=== PATIENT | female | born 1950 | race Caucasian/White ===

== ENCOUNTER 2019-02-18 11:12 | Emergency (ER) | payer BC, MEDICARE ==
[2019-02-18 11:45] VITALS: BP 116/80
--- NOTE | 2019-02-18 12:02 | UC ---
General HPI - HPI Summary HPI Summary: Got into town last night and found a small tick on her left knee this morning. No complaints. She was outside in the field during the evening - History of Current Complaint Chief Complaint: UCBiteInjury Stated Complaint: TICK Time Seen by Provider: 02/18/19 11:50 Hx Obtained From: Patient Onset/Duration: Gradual Onset, Lasting Hours Timing: Constant Onset Severity: Mild Current Severity: Mild Pain Intensity: 0 - Allergy/Home Medications Allergies/Adverse Reactions: Allergies Allergy/AdvReac Type Severity Reaction Status Date / Time cephalexin Allergy Itching, Verified 02/18/19 11:38 Redness ciprofloxacin [From Cipro] Allergy Itching, Verified 02/18/19 11:38 Redness erythromycin base Allergy Itching, Verified 02/18/19 11:38 Redness Penicillins Allergy Anaphylatic Verified 02/18/19 11:38 Shock Home Medications: Home Medications Albuterol HFA INHALER* [Ventolin HFA Inhaler*] 1 - 2 puff INH Q4H PRN 02/18/19 [ History Confirmed 02/18/19] Aspirin EC TAB* [Ecotrin EC Low Dose 81 MG*] 81 mg PO DAILY 02/18/19 [History Confirmed 02/18/19] Atorvastatin* [Lipitor*] 20 mg PO DAILY 02/18/19 [History Confirmed 02/18/19] Cholecalciferol TAB* [Vitamin D TAB*] 4,000 units PO DAILY 02/18/19 [History Confirmed 02/18/19] Hydrocodone/Acetaminophen [Hydrocodone/Acetaminophen 5-325 mg] 1 tab PO TID 09/07 [History Confirmed 02/18/19] Ibuprofen TAB* [Motrin TAB* 800 MG] 800 mg PO Q8H PRN 02/18/19 [History Confirmed 02/18/19] Umeclidin/Vilant 62.5 MDI(NF) [ANORO 62.5/25 Ellipta DEVICE (NF)] 1 inh INH QAM 02/18/19 [History Confirmed 02/18/19] metFORMIN* [Glucophage 500 MG TAB *] 500 mg PO BID 02/18/19 [History Confirmed 02/18/19] PMH/Surg Hx/FS Hx/Imm Hx Endocrine History: Diabetes - Surgical History Surgical History: Yes Surgery Procedure, Year, and Place: Cervical Fusion, 2017, [place]; Partial Left Upper Lobectomy, ~2014, [place]; Right Breast Lumpectomy, 2009, [place]; Cervical Surgeries ~2003 ~1997 - Social History Alcohol Use: Rare Substance Use Type: None Smoking Status (MU): Light Every Day Tobacco Smoker Type: Cigarettes Amount Used/How Often: ~1/10 PPD Length of Time of Smoking/Using Tobacco: Since Age 19 Review of Systems All Other Systems Reviewed And Are Negative: Yes Physical Exam - Summary Physical Exam Summary: She is nontoxic in appearance with stable vital signs Triage Information Reviewed: Yes Appearance: Well-Appearing Vital Signs: Initial Vital Signs Temp 98.5 F 02/18/19 11:34 Pulse 95 02/18/19 11:34 Resp 16 02/18/19 11:34 BP 116/80 02/18/19 11:34 Pulse Ox 97 02/18/19 11:34 Vital Signs Reviewed: Yes Skin Exam: Other - She has a nymphal, non-engorged black legged tick on her right knee. Course/Dx - Course Course Of Treatment: I removed the tick easily with a pair of forceps. It came out whole and was still crawling around. She requested take it with her. It's been on a short period time and is not engorged and I do not think she needs prophylaxis at this time. - Diagnoses Provider Diagnosis: Tick bite Discharge - Sign-Out/Discharge Documenting (check all that apply): Patient Departure All imaging exams completed and their final reports reviewed: No Studies - Discharge Plan Condition: Stable Disposition: HOME Patient Education Materials: Tick Bite (ED) Referrals: No Primary Care Phys,NOPCP [Primary Care Provider] - - Billing Disposition and Condition Condition: STABLE Disposition: Home
== END 2019-02-18 12:11 | disposition home or self-care (01) ==
LOC: UCCORT 11:12
DX: S80.262A Insect bite (nonvenomous), left knee, initial encounter (principal); W57.XXXA Bitten or stung by nonvenomous insect and other nonvenomous arthropods, initial encounter; Y93.9 Activity, unspecified; Y92.89 Other specified places as the place of occurrence of the external cause; Z88.0 Allergy status to penicillin; Z88.1 Allergy status to other antibiotic agents; E11.9 Type 2 diabetes mellitus without complications; Z79.84 Long term (current) use of oral hypoglycemic drugs; F17.210 Nicotine dependence, cigarettes, uncomplicated
CPT/HCPCS: 99201; G0463